=== PATIENT | female | born 1965 | race Caucasian/White ===

== ENCOUNTER 2016-09-26 11:02 | Emergency (ER) | payer OTHER ==
[~2016-09-26] VITALS: Ht 160 cm; Wt 111.7 kg
[~2016-09-26 11:02] MED LIST: ADVAIR 250/501 DISK IH; ALBUTEROL SULF8.5 GM IH; FLEXERIL10 MG PO; IBUPROFEN600 MG PO; LEVAQUIN750 MG PO; LISINOPRIL10 MG PO; MOBIC7.5 MG PO; NAPROSYN500 MG PO; NAPROXEN500 MG PO; PEN-VEE K,VEET500 MG PO; PREDNISONE20 MG PO; PROVENTIL HFA6.7 GM IH; SINGULAIR10 MG PO; ZOFRAN ODT8 MG PO
[2016-09-26 12:16] LABS: HEMATOCRIT 40.6 % (36.0-46.0); MCH 27.7 PG (29.0-34.0); MCV 86.6 FL (83-99); MEAN PLAT.VOLUME 10.5 uM^3 (9.5-12.4); PLATELET COUNT 193 K/uL (156-360); RBC DIS.WIDTH-CV 13.2 % (11.8-14.6); RBC DIS.WIDTH-SD 41.7 % (39-53); RED BLOOD COUNT 4.69 M/uL (3.80-5.20); WHITE BLOOD COUNT 10.3 K/uL (4.1-10.2)
[2016-09-26] MEDS ORDERED: MELOXICAM15 MG PO (12:23)
[2016-09-26 12:26] LABS: CHLORIDE 100 mEq/L (99-109); POTASSIUM 3.7 mEq/L (3.7-5.4); SODIUM 134 mEq/L (136-147)
[2016-09-26 12:28] LABS: GLUCOSE 139 mg/dL (70-99)
[2016-09-26 12:29] LABS: ANION GAP 5 MEQ/L (2-14)
[2016-09-26 12:30] LABS: TOTAL BILIRUBIN 0.6 mg/dL (0.0-1.0)
[2016-09-26 12:32] LABS: ALKALINE PHOSPHATASE 60 IU/L (3-129); GFR ESTIMATE (CALCULATED) > 59 mL/min/
[2016-09-26 12:33] LABS: UREA NITROGEN (BUN) 16 mg/dL (9-23)
[2016-09-26 12:40] LABS: QUANTITATIVE HCG < 4.0 MIU/ML
[2016-09-26 13:00] LABS: LIPASE 5 U/L (1.0-51.0)
[2016-09-26 13:18] LABS: TROP-I INTERPRETATION NEGATIVE; TROPONIN-I < 0.01 ng/mL (0.0-0.30)
[2016-09-26] MEDS ORDERED: ZOFRAN ODT4 MG PO (14:24)
[2016-09-26 14:42] VITALS: BP 154/83
== END 2016-09-26 14:52 | disposition home or self-care (01) ==
LOC: EME 11:02
DX: J02.0 Streptococcal pharyngitis (principal); I10 Essential (primary) hypertension; R10.84 Generalized abdominal pain; R11.2 Nausea with vomiting, unspecified; R51 Headache; N28.1 Cyst of kidney, acquired; N63 Unspecified lump in breast
CPT/HCPCS: 74177; 80053; 81003; 83690; 84484; 84702; 85027; 87651 90; 93005; 99281; 99284; J0561; J1885; J2405; J7040

== ENCOUNTER 2017-06-11 13:15 | Emergency (ER) | payer OTHER ==
[~2017-06-11] VITALS: Ht 157.5 cm; Wt 117.9 kg
[~2017-06-11 13:15] MED LIST changes: +MELOXICAM15 MG PO; +ZOFRAN ODT4 MG PO
[2017-06-11 13:57] LABS: HEMOGLOBIN 13.3 G/DL (11.9-15.5); MCHC 31.7 G/DL (30.0-36.0); MCV 88.4 FL (83-99); PLATELET COUNT 223 K/uL (156-360); RBC DIS.WIDTH-CV 12.9 % (11.8-14.6); RBC DIS.WIDTH-SD 42.1 % (39-53); RED BLOOD COUNT 4.75 M/uL (3.80-5.20); WHITE BLOOD COUNT 6.5 K/uL (4.1-10.2)
[2017-06-11 14:12] LABS: CHLORIDE 104 MEQ/L (99-109); POTASSIUM 3.5 MEQ/L (3.7-5.4); SODIUM 142 MEQ/L (136-147)
[2017-06-11 14:17] LABS: CREATININE 0.5 MG/DL (0.6-1.3); GFR ESTIMATE (CALCULATED) > 59 mL/min/; GLUCOSE 176 mg/dL (70-99); TROP-I INTERPRETATION NEGATIVE; TROPONIN-I < 0.01 ng/mL (0.0-0.30); UREA NITROGEN (BUN) 12 mg/dL (9-23)
[2017-06-11 19:55] VITALS: BP 162/69
== END 2017-06-11 19:56 | disposition home or self-care (01) ==
LOC: EME 13:15
DX: R07.9 Chest pain, unspecified (principal); R51 Headache; I10 Essential (primary) hypertension; R42 Dizziness and giddiness; R06.02 Shortness of breath
CPT/HCPCS: 71046; 71275; 80048; 84484; 85027; 93005; 99281; 99285; J1200; J1885; J2765; J7030